=== PATIENT | female | born 1950 | race Caucasian/White ===

== ENCOUNTER → 2021-01-31 | Outpatient (CLI) | payer MEDICARE, BC | LOC: MC.RAD 14:30 | DX: Z12.31 Encounter for screening mammogram for malignant neoplasm of breast (principal); R92.0 Mammographic microcalcification found on diagnostic imaging of breast ==

== ENCOUNTER → 2021-02-23 | Outpatient (CLI) | payer MEDICARE, BC | LOC: MC.RAD 12:53 | DX: R92.0 Mammographic microcalcification found on diagnostic imaging of breast (principal) ==

== ENCOUNTER → 2021-08-08 | Outpatient (CLI) | payer MEDICARE, BC | LOC: COL.VAS 08:42 | DX: I82.890 Acute embolism and thrombosis of other specified veins (principal) ==